=== PATIENT | female | born 1945 | race Caucasian/White ===

== ENCOUNTER → 2019-08-19 | Day surgery (SDC) | payer OTHER ==
[~2019-08-19] MED LIST: AVAPRO75 MG PO; JANUMET XR 50-1 EAC1 PO; NAMENDA5 MG PO; NEURONTIN600 M1 PO; PLAVIX75 MG PO; SINEMET 10-1001 EACH PO; SINGULAIR10 MG PO; SYNTHROID50 MCG PO
== END | disposition home or self-care (01) ==
LOC: ADM 08-15 08:45 → CIR.AMB 08:45
DX: M19.041 Primary osteoarthritis, right hand (principal); M65.841 Other synovitis and tenosynovitis, right hand; M65.331 Trigger finger, right middle finger; M65.341 Trigger finger, right ring finger